=== PATIENT | male | born 1985 | race Caucasian/White ===

== ENCOUNTER 2020-10-06 18:37 | Emergency (ER) | payer OTHER ==
[~2020-10-06 18:37] MED LIST: BACTRIM DS TAB1 EACH PO; NAPROSYN500 MG PO; ZOFRAN ODT 4 MG4 MG SL
== END 2020-10-06 21:00 | disposition left against medical advice (07) ==
LOC: ER1 18:37
DX: Z53.21 Procedure and treatment not carried out due to patient leaving prior to being seen by health care provider (principal)
CPT/HCPCS: 99281